=== PATIENT | male | born 1960 | race Caucasian/White ===

== ENCOUNTER → 2019-07-14 13:57 | Outpatient (CLI) | payer BC, SELFPAY ==
[2019-07-14 16:49] LABS: Blood Urea Nitrogen 12 mg/dL (7-18); Creatinine,Serum 0.89 mg/dL (0.70-1.30); Estimated Glomerular Filt Rate 88 ml/min (>60); GFR (African American) 106 ML/MIN (>60)
== END ==
PROVIDERS: Visit Provider Surgery
DX: Z01.818 Encounter for other preprocedural examination (principal)
CPT/HCPCS: 36415; 82565; 84520

== ENCOUNTER → 2019-07-21 09:25 | Outpatient (CLI) | payer BC, SELFPAY ==
--- NOTE | 2019-07-21 09:26 | CT_ITS ---
PROCEDURE: CT ABDOMEN PELVIS W CON CLINICAL INDICATION: hx of ana paula inguinal hernia- rt groin pain Right lower quadrant pain, right groin pain COMPARISON: No exams were available for comparison TECHNIQUE: IV Contrast: 75ML OPTIRAY 350 Oral Contrast none Axial images obtained with sagittal and coronal reformats. All CT scans at the facility use one or more dose reduction, viz: automated exposure control, ma/kV adjustment per patient size (including targeted exams where dose is matched to indication, i.e. head), or iterative reconstruction technique. FINDINGS: Lower thorax: 5 mm nodular opacity is present in the right lung base medially ABDOMEN: liver No masses or biliary dilatation. Gallbladder: Nondistended. No radio opaque stones. Pancreas: No masses or peripancreatic fluid collections. Spleen: unremarkable Adrenals: unremarkable Kidneys/ureters: No renal or ureteral calculi. Small bilateral cortical cysts PELVIS: Reproductive: unremarkable Bladder: Unremarkable Appendix: Unremarkable. No distention or periappendiceal phlegmonous change. ABDOMEN & PELVIS: Stomach bowel: Nondistended. No obvious mass or thickening. Peritoneum: No abnormal fluid collections. No obvious inflammatory changes. No free air. Lymph nodes: No enlarged lymph nodes apparent. Vasculature: No evidence of abdominal aortic aneurysm. No retroperitoneal hemorrhage evident. Bones: Sclerotic focus is present involving the proximal femoral shaft on the right and could be due to a bone island. There are degenerative changes in the lower thoracic spine. Abdominal wall: There appears to have been prior bilateral inguinal hernia repair. A small residual or recurrence hernia is noted in the left inguinal region containing fat IMPRESSION: 1. No acute abdominal or pelvic findings. 2. Bilateral inguinal hernia repair with small residual or recurrent left inguinal hernia containing fat Dictated by: Lamberto Contreras MD 07/21/2019 12:29 Electronically signed by Lamberto Contreras MD in [place] 07/21/2019 12:29
== END ==
PROVIDERS: PCP Nurse Practitioner Family; Visit Provider Surgery
DX: K46.9 Unspecified abdominal hernia without obstruction or gangrene (principal)
CPT/HCPCS: 74177; Q9967

== ENCOUNTER → 2019-07-28 08:22 | Outpatient (CLI) | payer BC, SELFPAY ==
--- NOTE | 2019-07-28 08:25 | MR_ITS ---
PROCEDURE: MR PELVIS WO CON CLINICAL INDICATION: rt side abdominal/ groin pain Right-sided abdominal and groin pain, prior hernia repair, right lower quadrant pain near the groin COMPARISON: CT ABDOMEN PELVIS W CON from 07/21/2019 TECHNIQUE: Routine multiplanar multi echo sequences are performed without gadolinium enhancement. FINDINGS: There is a moderate degree of motion artifact especially in lower abdomen and upper pelvis at the umbilical region. This obscures fine detail especially of the anterior abdominal wall. There has been prior bilateral inguinal hernia repair. Small left inguinal hernia is noted. The hernia is medial to the inferior epigastric vessels consistent with a direct inguinal hernia. This is better demonstrated on the CT scan. This hernia contains fat. On the right side there is protrusion of the anterior abdominal wall at the region of the inguinal canal however a definite hernia is not demonstrated into the inguinal canal. There is slight increased T2 signal involving the right aspect of the symphysis pubis at the region of the adductor longus insertion. This is nonspecific but could be seen with athletic pubalgia. Small cystic areas present in the left femoral neck at 9 mm. The hip joints, femoral heads, and SI joints have an unremarkable appearance. IMPRESSION: 1. Very slight increased T2 signal involving the right aspect of the symphysis pubis at the adductor longus insertion region which may be seen with athletic pubalgia 2. Postsurgical changes of the inguinal canals with small direct left inguinal hernia containing fat Dictated by: Lamberto Contreras MD 07/29/2019 12:20 Electronically signed by Lamebrto Contreras MD in [place] 07/30/2019 05:48
--- NOTE | 2019-07-28 08:25 | MR_ITS ---
PROCEDURE: MR ABDOMEN WO CON CLINICAL INDICATION: rt side abdominal/ groin pain Right-sided abdominal pain, groin pain, prior hernia repair, right lower quadrant pain COMPARISON: CT ABDOMEN PELVIS W CON from 07/21/2019 MR PELVIS WO CON from 07/28/2019 TECHNIQUE: The liver, gallbladder, spleen, adrenal glands, pancreas, and kidneys have an unremarkable appearance. Small cortical cysts are present involving the kidneys which are less than 1 cm. No evidence of aortic aneurysm. No intestinal obstruction or abnormal fluid collection. No evidence of aortic aneurysm. No acute bony findings. The abdominal in the upper abdomen has an unremarkable appearance. FINDINGS: Essentially negative MRI of the upper abdomen. IMPRESSION: Dictated by: Lamberto Contreras MD 07/29/2019 12:21 Electronically signed by Lamberto Contreras MD in [place] 07/30/2019 05:31
== END ==
PROVIDERS: PCP Nurse Practitioner Family; Visit Provider Surgery
DX: R10.31 Right lower quadrant pain (principal); Z87.19 Personal history of other diseases of the digestive system; Z98.890 Other specified postprocedural states
CPT/HCPCS: 72195; 74181

== ENCOUNTER → 2019-08-12 13:40 | Outpatient (CLI) | payer BC, SELFPAY ==
[2019-08-12 14:02] LABS: Basophils # 0.1 K/mm3 (0-0.2); Basophils % 0.7 % (0.1-2.0); Eosinophils # 0.2 K/mm3 (0.0-0.4); Eosinophils % 1.9 % (0.1-12.0); Hemoglobin 16.8 g/dL (14.1-18.0); Lymphocytes % 24.6 % (10-50); Mean Corpuscular HGB Conc 34.4 g/dL (31.8-35.4); Mean Corpuscular Hemoglobin 32.2 pg (27.0-31.2); Mean Corpuscular Volume 93.6 fl (80-94); Mean Platelet Volume 7.8 fl (7.4-10.4); Monocytes # 0.5 K/mm3 (0.1-1.0); Monocytes % 6.3 % (1.7-9.3); Neutrophils # 5.4 K/mm3 (1.8-7.8); Neutrophils % 66.6 % (37.0-80.0); Platelet Count 291 K/mm3 (142-424); Red Blood Count 5.23 M/mm3 (4.60-6.20); Red Cell Distribution Width 12.7 % (11.5-17.5)
[2019-08-12 14:33] LABS: Alanine Aminotransferase 43 U/L (12-78); Albumin Level 4.3 gm/dL (3.4-5.0); Albumin/Globulin Ratio 1.4 (1.1-1.8); Alkaline Phosphatase 99 U/L (46-116); Anion Gap 15.5 mEq/L (5-15); Aspartate Amino Transferase 19 U/L (15-37); Bilirubin,Total 0.7 mg/dL (0.2-1.0); Blood Urea Nitrogen 18 mg/dL (7-18); Calcium 9.4 mg/dL (8.5-10.1); Carbon Dioxide 26 mmol/L (21.0-32.0); Chloride 99 mmol/L (98-107); Chol/HDL Ratio 4.1 (1-3.5); Cholesterol 193 mg/dL (140-200); Creatinine,Serum 1.01 mg/dL (0.70-1.30); Estimated Glomerular Filt Rate 76 ml/min (>60); GFR (African American) 92 ML/MIN (>60); Globulin 3.1 gm/dl (1.3-3.2); Glucose 89 mg/dL (74-106); HDL Cholesterol 47 mg/dL (27-67); LDL Cholesterol 118 mg/dL (0-130); Potassium 4.5 mmoL/L (3.5-5.1); Sodium 136 mmol/L (136-145); T4 (Thyroxine) 7.5 ug/dl (4.7-13.3); Thyroid Stimulating Hormone 1.69 uIU/ml (0.358-3.740); Total Protein,Serum 7.4 gm/dL (6.4-8.2); Triglycerides 138 mg/dL (30-200); VLDL Cholesterol 28 mg/dL (0-40)
[2019-08-13 08:31] LABS: Vitamin D 25 Hydroxy 14.2 ng/mL (30.0-100.0)
== END ==
PROVIDERS: Visit Provider Physician Assistant
DX: Z00.00 Encounter for general adult medical examination without abnormal findings (principal); E55.9 Vitamin D deficiency, unspecified; I10 Essential (primary) hypertension
CPT/HCPCS: 80053; 80061; 82652; 84436; 84443; 85025

== ENCOUNTER 2020-10-06 10:18 | Emergency (ER) | payer BC, SELFPAY ==
[2020-10-06 10:33] VITALS: BP 179/100; PULSE 83; RESP 16; TEMP 37; O2SAT 98; BMI 36.9
--- NOTE | 2020-10-06 10:46 | HMH.EDUTC ---
[facility] [place] Clinical Impression: Exposure to COVID-19 virus Disposition: Home, Self-Care Condition on Discharge: Good Instructions: DI for COVID-19 (Suspected or Confirmed ), Coronavirus Disease 2019, COVID-19: Testing and Tracing, Preventing the Spread of Coronavirus Discharge Instructions Additional Instructions: *Monitor Temp, Over the counter Motrin or Tylenol as directed/as needed Tylenol every 4 hours and Motrin every 6 hours (as long as your family doctor has told you that you can take it) for fever or pain. and straight to ER if unable to lower temp less than 101.0 after medication given Follow up IMMEDIATELY for new or worsening symptoms or no Noticeable improvement over the next 48-72 hours. 911 for difficulty breathing or swallowing You were tested for today for COVID19 your test result should be back in the next 24-48 hours, you may call to the [facility] to see if your test results are back in the next 48 hours [phone] [facility] hours are 9am-9pm You was given a handout with instructions for Self Quarantine and Self isolation for while you wait on test results and what to do if they are positive If you are positive the Health Dept will be contacting you also Referrals: Sondra Lino PA [Primary Care Provider] - As needed Forms: Work/School Release Time of Disposition: 10:47 Medical Decision Making - [place] Inquiry Pt receiving controlled substance: No [place] was queried for this patient: No Vital Signs: 10/06/20 10:33 Temperature 98.6 F Temperature Source Oral Pulse Rate [Right] 83 Respiratory Rate 16 Blood Pressure [Right Arm] 179/100 H Blood Pressure Mean [Right Arm] 126 Blood Pressure Source [Right Arm] Automatic Cuff Blood Pressure Position [Right Arm] Sitting 02 Sat by Pulse Oximetry 98 Oxygen Delivery Method Room Air Orders (Tests/Meds): ORDERS Category Date Time Status Covid-19 Nasal PCR ([facility]) Routine Lab 10/06/20 10:22 Ordered [facility] [place] - General Stated complaint: exposure Time Seen by Provider: 10/06/20 10:46 Mode of Arrival: Ambulatory Source of Information: Patient Limitations: No Limitations Description of Symptoms (Recalled from Triage Doc. by RN): Pt advises he was exposed to covid. Denies any symptoms at this time HEENT Symptoms (Recalled from RN notes): No Resp Symptoms (Recalled from RN notes): No Skin Symptoms (Recalled from RN notes): No MS Symptoms (Recalled from RN notes): No Functional Status (Recalled from RN notes): na - History of Present Illness Provider Complaint: Patient states that he was exposed to someone that recently tested positive for COVID State that they are asymptomatic but rode in the same car with him and wasnt wearing a mask States that he come in today to get tested - Related Data Previous Rx's Medication Instructions Recorded cholecalciferol (vitamin D3) 25 1,000 unit PO DAILY #90 cap 08/13/19 mcg (1,000 unit) capsule ergocalciferol (vitamin D2) 1,250 50,000 unit PO QWEEK 90 Days #12 08/13/19 mcg (50,000 unit) capsule cap esomeprazole magnesium 20 mg 20 mg PO DAILY #90 tab 10/01/19 tablet,delayed release losartan 100 mg tablet See Rx Instructions .ROUTE 07/17/20 .COMPLEX #90 tab Allergies Allergy/AdvReac Type Severity Reaction Status Date / Time No Known Drug Allergies Allergy Unknown Verified 08/12/19 10:07 [NKDA] - Worker's Comp Is this a Worker's Comp case?: No [facility] History - Hepatitis A Screen Drug use history?: No High risk sexual behaviors?: No History of sexually transmitted infection?: No Currently employed?: No Childcare worker?: No Do you have indoor plumbing?: Yes Do you have electricity?: Yes Attestation statement:: This patient has been screened for Hepatitis A risk factors. I have reviewed the patient's past medical history: Yes Medical History: Reports:: Hypertension Denies:: Asthma, Chronic Obstructive Pulmonary Disease (COPD), Diabetes Mellitus Type 1, Diabetes Norma
[2020-10-06 10:53] VITALS: BP 178/98; PULSE 70; RESP 16; TEMP 36.6; O2SAT 98
== END 2020-10-06 10:54 | disposition home or self-care (01) ==
PROVIDERS: Emergency Provider Nurse Practitioner; PCP Physician Assistant
DX: Z20.822 Contact with and (suspected) exposure to COVID-19 (principal); I10 Essential (primary) hypertension
CPT/HCPCS: 99202; G0463; U0003

== ENCOUNTER 2020-10-17 08:59 | Emergency (ER) | payer BC, SELFPAY ==
[2020-10-17 08:59] VITALS: BP 101/71; PULSE 117; RESP 14; TEMP 36.4; O2SAT 96; BMI 30.2
--- NOTE | 2020-10-17 09:51 | HMH.EDUTC ---
[facility] [place] Disposition Clinical Impression: Viral syndrome, Exposure to COVID-19 virus Disposition: Home, Self-Care Condition on Discharge: Good Instructions: DI for COVID-19 (Suspected or Confirmed ), Preventing the Spread of Coronavirus Discharge Instructions Additional Instructions: Drink plenty of fluids. Take tylenol or ibuprofen for pain or fever. Take the medications as directed. Follow up with your regular doctor. GO TO THE ER FOR ANY WORSENING SYMPTOMS Referrals: Sondra Lino PA [Primary Care Provider] - Time of Disposition: 09:52 Medical Decision Making - Medical Records Medical records reviewed: No: I reviewed the patient's medical records. - [place] Inquiry Pt receiving controlled substance: No Vital Signs: 10/17/20 08:59 Temperature 97.6 F Temperature Source Oral Pulse Rate [Right] 117 H Respiratory Rate 14 Blood Pressure [Right Arm] 101/71 L Blood Pressure Mean [Right Arm] 81 02 Sat by Pulse Oximetry 96 Orders (Tests/Meds): ORDERS Category Date Time Status Covid-19 Nasal PCR ([facility]) Routine Lab 10/17/20 09:10 Received [facility] [place] HPI - General Stated complaint: covid exposure,symtoms Time Seen by Provider: 10/17/20 09:25 Mode of Arrival: Ambulatory Source of Information: Patient Description of Symptoms (Recalled from Triage Doc. by RN): pt request COVID test pt c/o WYATT loss of taste and smell HEENT Symptoms (Recalled from RN notes): Yes Resp Symptoms (Recalled from RN notes): Yes Skin Symptoms (Recalled from RN notes): No MS Symptoms (Recalled from RN notes): No Functional Status (Recalled from RN notes): wnl - History of Present Illness Provider Complaint: He states that for the past 3 days he has had malaise, cough, nausea and body aches. He has been exposed with covid-19 at his home. - Related Data Previous Rx's Medication Instructions Recorded cholecalciferol (vitamin D3) 25 1,000 unit PO DAILY #90 cap 08/13/19 mcg (1,000 unit) capsule ergocalciferol (vitamin D2) 1,250 50,000 unit PO QWEEK 90 Days #12 08/13/19 mcg (50,000 unit) capsule cap esomeprazole magnesium 20 mg 20 mg PO DAILY #90 tab 10/01/19 tablet,delayed release losartan 100 mg tablet See Rx Instructions .ROUTE 10/13/20 .COMPLEX #90 tab azithromycin 250 mg tablet See Rx Instructions PO .COMPLEX #6 10/16/20 tab Allergies Allergy/AdvReac Type Severity Reaction Status Date / Time No Known Drug Allergies Allergy Unknown Verified 10/17/20 09:25 [NKDA] - Worker's Comp Is this a Worker's Comp case?: No Is this an [facility] Worker's Comp?: No Is this a [place] Worker's Comp?: No H History - Hepatitis A Screen Drug use history?: No High risk sexual behaviors?: No History of sexually transmitted infection?: No Currently employed?: No Childcare worker?: No Do you have indoor plumbing?: Yes Do you have electricity?: Yes Attestation statement:: This patient has been screened for Hepatitis A risk factors. I have reviewed the patient's past medical history: Yes Medical History: Reports:: Hypertension Denies:: Asthma, Chronic Obstructive Pulmonary Disease (COPD), Diabetes Mellitus Type 1, Diabetes Mellitus Type 2, Gastroesophageal Reflux Disease(GERD), Hyperlipidemia Other Medical History: Reports: Arthritis. Denies: Sinus Problems Other Surgeries: Yes: Hernia Repair, Other Amputation: No Fractures: No - Social History Smoking Status: Never smoker Tobacco Type: cigarettes # Packs/Day (cigarettes): 0 #Yrs smoked (if former smoker): 0 Alcohol Intake: current Alcohol Intake Frequency:: a few times a week Substance Use Type: denies use Occupational Status: employed Family Hx:: Cancer ROS Obtained: Yes All systems reviewed & no additional complaints - Constitutional Constitutional: Reports as per HPI - Eyes Eyes: Denies blurry vision, Denies change in vision, Denies eye discharge - ENT Ears, Nose, Mouth, and Throat: Reports as per HPI - Cardiovascular [facility]
[2020-10-17 09:56] VITALS: BP 101/71; PULSE 117; RESP 14; TEMP 36.4; O2SAT 96
[2020-10-18 08:54] LABS: Covid-19 Nasal PCR Sendout P&C POSITIVE
--- NOTE | 2020-10-18 08:59 | PC.NURSE ---
notified positive covid test
== END 2020-10-17 09:58 | disposition home or self-care (01) ==
PROVIDERS: Emergency Provider Nurse Practitioner Family; PCP Physician Assistant
DX: U07.1 COVID-19 (principal); I10 Essential (primary) hypertension; Z79.899 Other long term (current) drug therapy
CPT/HCPCS: 99202; G0463; U0004

== ENCOUNTER → 2021-01-15 14:00 | Outpatient (CLI) | payer BC, SELFPAY ==
[2021-01-15 14:18] LABS: Alanine Aminotransferase 30 U/L (12-78); Albumin Level 4.5 g/dl (3.5-5.0); Albumin/Globulin Ratio 1.7 (1.1-1.8); Alkaline Phosphatase 110 U/L (38-126); Anion Gap 10.4 mEq/L (5-15); Aspartate Amino Transferase 33 U/L (17-59); Bilirubin,Total 0.5 mg/dl (0.2-1.3); Blood Urea Nitrogen 18 mg/dl (9-20); Calcium 9.3 mg/dl (8.4-10.2); Carbon Dioxide 28 mmol/L (22.0-30.0); Chloride 103 mmol/L (98-107); Chol/HDL Ratio 3.5 (1-3.5); Cholesterol 179 mg/dl (140-200); Estimated Glomerular Filt Rate 76 ml/min (>60); GFR (African American) 93 ML/MIN (>60); Globulin 2.6 g/dL (1.3-3.2); Glucose 105 mg/dl (74-100); HDL Cholesterol 51 mg/dl (40-60); Potassium 4.4 mmoL/L (3.5-5.1); Sodium 137 mmol/L (136-145); Total Protein,Serum 7.1 g/dl (6.3-8.2); Triglycerides 73 mg/dl (30-150); VLDL Cholesterol 15 mg/dL (0-40)
[2021-01-15 14:29] LABS: Direct LDL Cholesterol 115.16 mg/dL (100-129)
[2021-01-15 14:36] LABS: Free T4 (Free Thyroxine) 0.88 ng/dl (0.78-2.19)
[2021-01-15 14:37] LABS: 25-OH Vitamin D, Total 30.6 ng/mL (30-100)
[2021-01-15 14:50] LABS: Basophils # 0.1 K/mm3 (0-0.2); Basophils % 0.9 % (0.1-2.0); Eosinophils # 0.2 K/mm3 (0.0-0.4); Eosinophils % 3.4 % (0.1-12.0); Hematocrit 45.5 % (42.0-52.0); Hemoglobin 15.1 g/dL (14.1-18.0); Lymphocytes # 1.6 K/mm3 (0.7-4.5); Lymphocytes % 26.4 % (10-50); Mean Corpuscular HGB Conc 33.2 g/dL (31.8-35.4); Mean Corpuscular Hemoglobin 31.5 pg (27.0-31.2); Mean Corpuscular Volume 94.8 fl (80-94); Mean Platelet Volume 8.1 fl (7.4-10.4); Monocytes # 0.4 K/mm3 (0.1-1.0); Monocytes % 6.2 % (1.7-9.3); Neutrophils # 3.9 K/mm3 (1.8-7.8); Neutrophils % 63.1 % (37.0-80.0); Platelet Count 221 K/mm3 (142-424); Prostate Specific Ag Screen 2.9 ng/ml (0.0-4.0); Thyroid Stimulating Hormone 1.38 uIU/mL (0.465-4.68); White Blood Count 6.2 K/mm3 (4.8-10.8)
[2021-01-15 15:07] LABS: Vitamin B12 262 pg/mL (239-931)
[2021-01-17 22:24] LABS: Testosterone,Total 269 ng/dL (264-916)
== END ==
PROVIDERS: Visit Provider Physician Assistant
DX: E55.9 Vitamin D deficiency, unspecified; Z00.00 Encounter for general adult medical examination without abnormal findings; R53.82 Chronic fatigue, unspecified; I10 Essential (primary) hypertension; Z12.5 Encounter for screening for malignant neoplasm of prostate
CPT/HCPCS: 80053; 80061; 82306; 82607; 84403; 84439; 84443; 85025; G0103

== ENCOUNTER → 2021-01-24 13:44 | Outpatient (CLI) | payer BC, SELFPAY ==
[2021-01-26 11:06] LABS: Testosterone,Total 493 ng/dL (264-916)
== END ==
PROVIDERS: Visit Provider Physician Assistant
DX: E34.9 Endocrine disorder, unspecified (principal)
CPT/HCPCS: 84403

== ENCOUNTER → 2022-02-20 16:30 | Outpatient (CLI) | payer BC, SELFPAY ==
[2022-02-20 14:21] LABS: Basophils # 0.1 K/mm3 (0-0.2); Basophils % 1.2 % (0.1-2.0); Eosinophils # 0.2 K/mm3 (0.0-0.4); Eosinophils % 4.1 % (0.1-12.0); Hemoglobin 15.9 g/dL (14.1-18.0); Lymphocytes # 1.7 K/mm3 (0.7-4.5); Lymphocytes % 32.8 % (10-50); Mean Corpuscular HGB Conc 33.7 g/dL (31.8-35.4); Mean Corpuscular Hemoglobin 31.9 pg (27.0-31.2); Mean Corpuscular Volume 94.5 fl (80-94); Mean Platelet Volume 8.5 fl (7.4-10.4); Monocytes # 0.4 K/mm3 (0.1-1.0); Monocytes % 6.9 % (1.7-9.3); Neutrophils # 2.9 K/mm3 (1.8-7.8); Platelet Count 235 K/mm3 (142-424); Red Blood Count 4.97 M/mm3 (4.60-6.20); Red Cell Distribution Width 13.4 % (11.5-17.5); White Blood Count 5.2 K/mm3 (4.8-10.8)
[2022-02-20 14:22] LABS: Alanine Aminotransferase 61 U/L (12-78); Albumin Level 4.2 g/dl (3.5-5.0); Albumin/Globulin Ratio 1.8 (1.1-1.8); Alkaline Phosphatase 104 U/L (38-126); Anion Gap 9.4 mEq/L (5-15); Aspartate Amino Transferase 49 U/L (17-59); Bilirubin,Total 0.7 mg/dl (0.2-1.3); Blood Urea Nitrogen 14 mg/dl (9-20); Calcium 9.3 mg/dl (8.4-10.2); Carbon Dioxide 30 mmol/L (22.0-30.0); Chloride 102 mmol/L (98-107); Chol/HDL Ratio 4.3 (1-3.5); Cholesterol 159 mg/dl (140-200); Estimated Glomerular Filt Rate 86 ml/min (>60); GFR (African American) 104 ML/MIN (>60); Globulin 2.4 g/dL (1.3-3.2); Glucose 105 mg/dl (74-100); HDL Cholesterol 37 mg/dl (40-60); Potassium 4.4 mmoL/L (3.5-5.1); Sodium 137 mmol/L (136-145); Total Protein,Serum 6.6 g/dl (6.3-8.2); Triglycerides 152 mg/dl (30-150); VLDL Cholesterol 30 mg/dL (0-40)
[2022-02-20 14:39] LABS: 25-OH Vitamin D, Total 24.7 ng/mL (30-100)
[2022-02-20 14:54] LABS: Thyroid Stimulating Hormone 2.15 uIU/mL (0.465-4.68)
[2022-02-20 15:13] LABS: Vitamin B12 372 pg/mL (239-931)
[2022-02-22 10:03] LABS: Testosterone,Total 339 ng/dL (264-916)
== END ==
PROVIDERS: Visit Provider Physician Assistant
DX: Z00.00 Encounter for general adult medical examination without abnormal findings (principal); R53.83 Other fatigue; E55.9 Vitamin D deficiency, unspecified; Z12.5 Encounter for screening for malignant neoplasm of prostate
CPT/HCPCS: 80053; 80061; 82306; 82607; 84403; 84443; 85025; G0103

== ENCOUNTER 2022-04-19 08:33 | Emergency (ER) | payer BC, SELFPAY ==
--- NOTE | 2022-04-19 09:00 | HMH.EDUTC ---
[facility] [place] Disposition Clinical Impression: COVID-19 Disposition: Home, Self-Care Condition on Discharge: Good Instructions: DI for COVID-19 (Suspected or Confirmed ), Preventing the Spread of Coronavirus Discharge Instructions Additional Instructions: Drink plenty of fluids. Take tylenol for pain or fever. Return if you begin to have difficulty breathing. Follow up with your regular doctor. GO TO THE ER FOR ANY WORSENING SYMPTOMS Quarantine until you know the results of your covid-19 test. Notify your school or workplace of your results and follow their instructions regarding return to work/school. Prescriptions: Ondansetron [Zofran 4mg ODT] 4 mg PO Q8HP PRN #12 tab PRN Reason: Nausea Transmission Status: Received by [facility] Benzonatate [Benzonatate 100mg cap] 100 mg PO TIDP PRN #30 cap PRN Reason: Cough Transmission Status: Received by [facility] Referrals: Sondra Lino PA [Primary Care Provider] - Time of Disposition: Medical Decision Making - Medical Records Medical records reviewed: No: I reviewed the patient's medical records. - [place] Inquiry Pt receiving controlled substance: No Vital Signs: 04/19/22 09:15 04/19/22 09:25 Temperature 99.3 F 99.3 F Temperature Source Oral Pulse Rate 125 H Pulse Rate [Left] 125 H Respiratory Rate 16 16 Blood Pressure 166/102 H Blood Pressure [Right Arm] 166/102 H Blood Pressure Mean [Right Arm] 123 02 Sat by Pulse Oximetry 97 [facility] [place] HPI - General Stated complaint: at home covid pos, h/a, congestion, sore throat Time Seen by Provider: 04/19/22 09:01 - History of Present Illness Provider Complaint: He states that he tested positive for covid-19 on a home test yesterday evening. He needs a pcr test for his employer. - Related Data Previous Rx's Medication Instructions Recorded esomeprazole magnesium 20 mg 20 mg PO DAILY #90 tab 10/12/21 tablet,delayed release losartan 100 mg tablet See Rx Instructions .ROUTE 02/20/22 .COMPLEX #90 tab tamsulosin 0.4 mg capsule 0.4 mg PO DAILY #90 cap 02/20/22 cholecalciferol (vitamin D3) 25 25 mcg PO DAILY #90 cap 02/21/22 mcg (1,000 unit) capsule ergocalciferol (vitamin D2) 1,250 1,250 mcg PO WEEKLY #14 cap 02/21/22 mcg (50,000 unit) capsule Benzonatate [Benzonatate 100mg 100 mg PO TIDP PRN #30 cap 04/19/22 cap] Ondansetron [Zofran 4mg ODT] 4 mg PO Q8HP PRN #12 tab 04/19/22 Allergies Allergy/AdvReac Type Severity Reaction Status Date / Time No Known Drug Allergies Allergy Unknown Verified 04/19/22 09:18 [NKDA] [facility] History - Hepatitis A Screen Attestation statement:: This patient has been screened for Hepatitis A risk factors. I have reviewed the patient's past medical history: Yes Medical History: Reports:: Hypertension Denies:: Asthma, Chronic Obstructive Pulmonary Disease (COPD), Diabetes Mellitus Type 1, Diabetes Mellitus Type 2, Gastroesophageal Reflux Disease(GERD), Hyperlipidemia Other Medical History: Reports: Arthritis. Denies: Sinus Problems Other Surgeries: Yes: Hernia Repair, Other Amputation: No Fractures: No - Social History Smoking Status: Never smoker Tobacco Type: cigarettes # Packs/Day (cigarettes): 0 #Yrs smoked (if former smoker): 0 Alcohol Intake: current Alcohol Intake Frequency:: a few times a week Substance Use Type: denies use Occupational Status: employed Family Hx:: Cancer ROS Obtained: Yes All systems reviewed & no additional complaints - Constitutional Constitutional: Reports as per HPI - Eyes Eyes: Denies eye discharge - ENT Ears, Nose, Mouth, and Throat: Reports as per HPI - Cardiovascular Cardiovascular: Denies chest pain - Respiratory Respiratory: Reports as per HPI Physical Exam - General General appearance: alert, in no apparent distress - Head Head exam: atraumatic, normocephalic, normal inspection - Eye Eye exam: Present: normal appearance,
[2022-04-19 09:15] VITALS: BP 166/102; PULSE 125; RESP 16; TEMP 37.4; O2SAT 97; BMI 32.0
[2022-04-19 09:25] VITALS: BP 166/102; PULSE 125; RESP 16; TEMP 37.4
== END 2022-04-19 09:26 | disposition home or self-care (01) ==
PROVIDERS: Emergency Provider Nurse Practitioner Family; PCP Physician Assistant
DX: U07.1 COVID-19 (principal)
CPT/HCPCS: 99212; C9803; G0463; U0003; U0005

== ENCOUNTER → 2022-07-30 08:08 | Outpatient (POV) | payer BC, SELFPAY | PROVIDERS: Visit Provider Dermatology | DX: Z00.00 Encounter for general adult medical examination without abnormal findings (principal) ==

== ENCOUNTER → 2022-12-12 15:24 | Outpatient (CLI) | payer BC, SELFPAY ==
[2022-12-12 15:00] LABS: Chloride 102 mmol/L (98-107); Sodium 137 mmol/L (136-145)
[2022-12-12 15:01] LABS: Potassium 4.5 mmoL/L (3.5-5.1)
[2022-12-12 15:03] LABS: Alanine Aminotransferase 73 U/L (12-78); Albumin Level 4.7 g/dl (3.5-5.0); Albumin/Globulin Ratio 1.8 (1.1-1.8); Alkaline Phosphatase 126 U/L (38-126); Anion Gap 12.5 mEq/L (5-15); Aspartate Amino Transferase 49 U/L (17-59); Bilirubin,Total 0.6 mg/dl (0.2-1.3); Blood Urea Nitrogen 13 mg/dl (9-20); Carbon Dioxide 27 mmol/L (22.0-30.0); Cholesterol 195 mg/dl (140-200); Estimated Glomerular Filt Rate 98 ml/min (>60); GFR (African American) 119 ML/MIN (>60); Globulin 2.6 g/dL (1.3-3.2); Total Protein,Serum 7.3 g/dl (6.3-8.2); Triglycerides 221 mg/dl (30-150); VLDL Cholesterol 44 mg/dL (0-40)
[2022-12-12 15:04] LABS: Calcium 9.4 mg/dl (8.4-10.2); Chol/HDL Ratio 4.2 (1-3.5); Glucose 84 mg/dl (74-100); HDL Cholesterol 46 mg/dl (40-60)
[2022-12-12 15:15] LABS: Direct LDL Cholesterol 114.91 mg/dL (100-129)
[2022-12-12 15:17] LABS: Erythrocyte Sedimentation Rate 22 mm/hr (0-20)
[2022-12-12 15:19] LABS: C-Reactive Protein 1.7 mg/L (0-4)
[2022-12-12 15:21] LABS: Basophils # 0.1 K/mm3 (0-0.2); Basophils % 1.3 % (0.1-2.0); Eosinophils # 0.2 K/mm3 (0.0-0.4); Eosinophils % 3.6 % (0.1-12.0); Hemoglobin 16.2 g/dL (14.1-18.0); Lymphocytes # 1.6 K/mm3 (0.7-4.5); Lymphocytes % 27.3 % (10-50); Mean Corpuscular HGB Conc 33.2 g/dL (31.8-35.4); Mean Corpuscular Hemoglobin 31.8 pg (27.0-31.2); Monocytes # 0.4 K/mm3 (0.1-1.0); Neutrophils # 3.7 K/mm3 (1.8-7.8); Neutrophils % 61.8 % (37.0-80.0); Platelet Count 258 K/mm3 (142-424)
[2022-12-12 15:22] LABS: 25-OH Vitamin D, Total 41.9 ng/mL (30-100)
[2022-12-12 15:35] LABS: Thyroid Stimulating Hormone 2.22 uIU/mL (0.465-4.68)
[2022-12-12 15:55] LABS: Uric Acid 4.1 mg/dl (3.5-8.5)
== END ==
PROVIDERS: PCP Physician Assistant; Visit Provider Physician Assistant
DX: I10 Essential (primary) hypertension (principal); Z00.00 Encounter for general adult medical examination without abnormal findings; M25.571 Pain in right ankle and joints of right foot; N40.1 Benign prostatic hyperplasia with lower urinary tract symptoms; E66.9 Obesity, unspecified; Z68.32 Body mass index [BMI] 32.0-32.9, adult; Z12.5 Encounter for screening for malignant neoplasm of prostate
CPT/HCPCS: 80053; 80061; 82306; 84443; 84550; 85025; 85651; 86140

== ENCOUNTER 2025-01-13 07:13 | Outpatient (CLI) | payer BC, SELFPAY ==
--- NOTE | 2025-01-13 08:04 | US_ITS ---
FINAL REPORT TECHNIQUE: Multiple transverse and longitudinal images CLINICAL HISTORY: ELEVATED LEVELS COMPARISON: None FINDINGS: The gallbladder shows no wall thickening, distention or stone disease. No biliary ductal dilatation is appreciated. No fluid collections are seen. There is fatty infiltration of a normal-sized liver. No focal hepatic mass or biliary ductal dilatation is identified. Limited portions of the right kidney are unremarkable. IMPRESSION: 1. No evidence of cholelithiasis 2. Fatty infiltration of a normal-sized liver without evidence of mass or biliary ductal dilatation. Reviewed, Interpreted and Dictated by Waylon Alfonso MD Transcribed by Daja Saini Authenticated and . [facility]
== END 2025-01-13 23:59 | disposition home or self-care (01) ==
LOC: RAD 07:14
PROVIDERS: PCP Physician Assistant; Visit Provider Physician Assistant
DX: R74.01 Elevation of levels of liver transaminase levels (principal)
CPT/HCPCS: 76705

== ENCOUNTER 2025-01-19 14:19 | Outpatient (CLI) | payer BC, SELFPAY ==
[2025-01-20 06:10] LABS: Hep B Core Ab, Total Negative (Negative)
== END 2025-01-19 23:59 | disposition home or self-care (01) ==
LOC: LAB 14:21
PROVIDERS: PCP Physician Assistant; Visit Provider Physician Assistant
DX: R74.01 Elevation of levels of liver transaminase levels (principal)
CPT/HCPCS: 36415; 86704